=== PATIENT | male | born 1965 | race Two or more races ===

== ENCOUNTER 2020-06-08 06:12 | Day surgery (SDC) | payer OTHER ==
[~2020-06-08 06:12] MED LIST: TAMS0.4C PO
[2020-06-08] MEDS ORDERED: PERCOCET 5-3251 EACH PO (14:45)
[2020-06-08] MEDS ORDERED: GRALISE600 MG PO (14:47)
== END 2020-06-08 17:20 | disposition home or self-care (01) ==
LOC: CIR.AMB 06:12
PROVIDERS: ATTEND Surgery
DX: N52.03 Combined arterial insufficiency and corporo-venous occlusive erectile dysfunction (principal); Z20.828 Contact with and (suspected) exposure to other viral communicable diseases
CPT/HCPCS: 54405; 54112; C1813

== ENCOUNTER 2020-08-10 06:10 | Day surgery (SDC) | payer OTHER ==
[~2020-08-10 06:10] MED LIST changes: +GRALISE600 MG PO; +PERCOCET 5-3251 EACH PO
[2020-08-10] MEDS ORDERED: FLUCONAZOLE100 MG PO (16:07)
[2020-08-10] MEDS ORDERED: AUGMENTIN XR 11 EACH PO (16:07)
== END 2020-08-10 16:50 | disposition home or self-care (01) ==
LOC: CIR.AMB 06:10
PROVIDERS: ATTEND Surgery
DX: T83.410S Breakdown (mechanical) of implanted penile prosthesis, sequela (principal); Z20.828 Contact with and (suspected) exposure to other viral communicable diseases